=== PATIENT | male | born 1990 | race Asian ===

== ENCOUNTER 2021-03-08 11:19 | Emergency (ER) | payer OTHER ==
[~2021-03-08] VITALS: Ht 172.7 cm; Wt 79.5 kg
[2021-03-08] MEDS ORDERED: TETANUS/DIPHTHERIA TOX ADULT 0.5 ML SYR IM ONE (11:45)
[2021-03-08] MEDS ORDERED: IBUPROFEN 600 MG TAB PO STA (11:50)
[2021-03-08] MEDS ORDERED: TETANUS/DIPHTHERIA TOX ADULT 0.5 ML SYR ONE (12:03)
[2021-03-08] MEDS ORDERED: CEPHALEXIN500 MG PO (12:32)
[2021-03-08] MEDS ORDERED: NAPROSYN500 MG PO (12:32)
== END 2021-03-08 12:39 | disposition home or self-care (01) ==
LOC: FSED 12:15
DX: S60.222A Contusion of left hand, initial encounter (principal); W20.8XXA Other cause of strike by thrown, projected or falling object, initial encounter; Y93.H3 Activity, building and construction; Y92.007 Garden or yard of unspecified non-institutional (private) residence as the place of occurrence of the external cause; F17.210 Nicotine dependence, cigarettes, uncomplicated
CPT/HCPCS: 90471; 90714; 99283